=== PATIENT | male | born 1940 | race Caucasian/White ===

== ENCOUNTER 2017-03-11 06:23 | Day surgery (SDC) | payer OTHER ==
[2017-03-04 13:28] LABS: HEMOGLOBIN 10.7 g/dL (13.6-17.8)
[2017-03-04 13:29] LABS: HEMATOCRIT 33.6 % (40.0-51.0)
[2017-03-04 13:32] LABS: ASCORBIC ACID (UR NOT ORDER) NEG (NEG); BILIRUBIN, URINE NEGATIVE (NEG); KETONE, URINE NEGATIVE (NEG); LEUKOCYTE ESTERASE(NOT OR NEG (NEG); WBC (NOT ORDERED) (RFLEX) < 1 (0-5)
[2017-03-04 13:46] LABS: BUN (BLOOD UREA NITROGEN) 8 MG/DL (6-23); CALCIUM, SERUM 8.7 MG/DL (8.5-10.4); CHLORIDE, SERUM 98 MMOL/L (96-112); CO2 (CARBON DIOXIDE) 26 MMOL/L (24-34); CREATININE 0.86 MG/DL (0.70-1.30); GFR AFRICAN AMERICAN 96 ML/MIN (>=60); GFR NON AFRICAN AMERICAN 83 ML/MIN (>=60); GLUCOSE, SERUM 83 MG/DL (60-99); POTASSIUM, SERUM 4.2 MMOL/L (3.5-5.3); SODIUM, SERUM 130 MMOL/L (135-148)
--- NOTE | ~2017-03-11 | OP ---
Record Of Operation [facility] [address] [place]. [address] NAME: PONCHO MCDANIEL : 36 STATUS : REG [facility]#: [id number] AGE: 76 ADM/REG DATE : 03/11/17 MR#: [id number] REPORT SERV DATE: 03/11/17 DICTATED BY: PONCHO SONI JR. DATE: 03/11/17 REPORT STATUS : Draft TRANSCRIBED BY: MODL DATE: 03/11/17 DATE OF PROCEDURE: 03/11/2017 SURGEON: Poncho Soni M.D. PREOPERATIVE DIAGNOSIS: Urinary retention. POSTOPERATIVE DIAGNOSIS: Urinary retention. PROCEDURE PERFORMED: Removal of InterStim device and lead along with placement of new InterStim lead stage I. COMPLICATIONS: None. CONSULTATIONS: None. ANESTHESIA: General with an endotracheal tube. SPECIMENS: InterStim device plus lead. DRAINS: None. ESTIMATED BLOOD LOSS: None. INDICATION: Mr. Mcdaniel is a 76-year-old gentleman, who has an InterStim device in place to help manage his urinary retention. It has become ineffective over the past several months and he is no longer able to feel any stimulation from the device and he is no longer able to empty his bladder. He did have emptying ability at one point during the original placement of his device. He comes today for placement of a new lead and new location. PROCEDURE IN DETAIL: After the patient was identified and proper informed consent was obtained, he was taken to the operating room. General anesthesia was performed without complication using an endotracheal tube. He was then prepped and draped in a normal sterile fashion in the prone position. I identified the old InterStim device in the right upper buttock. I made an incision overlying his previous scar and removed the InterStim battery from the pseudo pocket leaving it attached to the actual lead itself. I then made a second incision overlying the insertion location for the previous lead on the right S3 foramen. The lead was identified and brought up from the skin. I then dissected down along the lead all the way to the base of the actual lead itself and then removed the lead from the S3 foramen and from the patient. I then irrigated these 2 sites and closed using a 3-0 Vicryl suture in the subcutaneous tissue and a 4-0 Monocryl on the skin with Telfa Tegaderm for dressing. I then placed two needles into the left S3 foramen. The more lateral lead had reasonable stimulation; however, the more medial lead had excellent flexion as well as perineal Reva. On x-ray,the angle appeared excellent and then the more medial location was felt to be the better of the two. I then removed the lateral needle and been placed the guidewire down the more medial needle and removed the needle itself, placing the sheath over Record Of Operation [place] [id number] [place]. [address] NAME: PONCHO MCDANIEL : 36 STATUS : REG [facility] PAT#: [id number] AGE: 76 ADM/REG DATE : 03/11/17 MR#: [id number] REPORT SERV DATE: 03/11/17 DICTATED BY: PONCHO SONI JR. DATE: 03/11/17 REPORT STATUS : Draft TRANSCRIBED BY: DENIZ DATE: 03/11/17 the guidewire and the lead down in through the sheath under fluoroscopic guidance. The lead appeared to be in excellent position with the #3-lead right at the anterior edge of the sacrum. I then tested these leads and had excellent toe flexion and perineal Reva at 2 to 2.8 on the power level on all 4 leads. I then tunneled the lead over to a pocket made on the left upper buttock, connected the lead to the extension device and tunneled the extension device medially and superiorly and brought it out through the skin. I irrigated these 2 incisions and closed them again using a 3-0 Vicryl and a 4-0 Monocryl with Telfa Tegaderm for dressing. The patient was awakened in the operating room and transferred to the postanesthesia care in stable condition. I will touch base with him next week and will decide on whether or not to proceed with stage II. CIRO/DENIZ Poncho Soni Jr., M.D. / [id number] CC: Matt Dodd Jr., D.O.
[~2017-03-11 06:23] MED LIST: BACDS PO; CAT1 PO; CHLORTHALIDONE; COREG6 PO; ENALAPRIL PO; EXCEDRIN EXTRA1 EACH PO; FINASTERIDE; FLOMAX; FOSINOPRIL PO; HYDRALAZINE PO; IRON PO; K-TABS10 MEQ PO; L20 PO; LIPITOR10 PO; LISINOPRIL; MULTIPLE VIT PO; NEUR100 PO; OMEPRAZOLE PO; PRILOSEC40 MG PO; PROAIR HFA INH; REM15 PO; REQUIP3 PO; VASOTEC20 MG PO; VIST25 PO; VITAMIN D PO; VITAMINS/SUPPLEMENTS; ZOL100 PO
[2017-03-15] MEDS ORDERED: NORCO1 TA2 PO (15:36)
[2017-03-15] MEDS ORDERED: VITA D2 PO (15:39)
[2017-03-15] MEDS ORDERED: ALBUTEROL INH (16:02)
== END 2017-03-11 14:42 | disposition home or self-care (01) ==
LOC: SDC 06:23
PROVIDERS: Urology
PROC: 01PY0MZ Removal of Neurostimulator Lead from Peripheral Nerve, Open Approach (ICD-10-PCS; principal; 2017-03-11 07:45)
PROC: 01HY0MZ Insertion of Neurostimulator Lead into Peripheral Nerve, Open Approach (ICD-10-PCS; 2017-03-11 07:45)
DX: Z46.2 Encounter for fitting and adjustment of other devices related to nervous system and special senses (principal); J44.9 Chronic obstructive pulmonary disease, unspecified; I10 Essential (primary) hypertension; F17.210 Nicotine dependence, cigarettes, uncomplicated; R33.9 Retention of urine, unspecified; F41.9 Anxiety disorder, unspecified; G47.33 Obstructive sleep apnea (adult) (pediatric); Z98.41 Cataract extraction status, right eye; Z98.1 Arthrodesis status; Z98.42 Cataract extraction status, left eye; Z98.890 Other specified postprocedural states; Z79.899 Other long term (current) drug therapy
CPT/HCPCS: 80048; 81001; 85014; 85018; 88300; 93005; 94640; C1778; J0694; J2250; J2270; J2370; J2405; J3010

== ENCOUNTER 2017-03-21 12:03 | Day surgery (SDC) | payer OTHER ==
--- NOTE | ~2017-03-21 | OP ---
Record Of Operation [facility] [address] [place]. [address] NAME: PONCHO MCDANIEL : 36 STATUS : [facility]#: [id number] AGE: 76 ADM/REG DATE : 03/21/17 MR#: [id number] REPORT SERV DATE: 03/21/17 DICTATED BY: ASH FANGPONCHO LYNDSAY DATE: 03/21/17 REPORT STATUS : Draft TRANSCRIBED BY: MODL DATE: 03/21/17 DATE OF PROCEDURE: 03/21/2017 SURGEON: Poncho Soni M.D. PREOPERATIVE DIAGNOSIS: Urinary retention. POSTOPERATIVE DIAGNOSIS: Urinary retention. PROCEDURE PERFORMED: Stage II InterStim placement. COMPLICATIONS: None. CONSULTATIONS: None. ANESTHESIA: General with an endotracheal tube. SPECIMENS: None. DRAINS: None. ESTIMATED BLOOD LOSS: None. INDICATION: Mr. Mcdaniel is a 76-year-old gentleman, who is back today after stage I InterStim placed approximately 10 days ago. He is in urinary retention and does require Shanks catheterization. However, he has gotten much better stimulation from this new lead placement. He feels the flutter in the perineum and scrotum as expected and he is yet to see positive results from a voiding standpoint. However, he does report that he feels as there is less pain and less spasm of the bladder with the device in place. PROCEDURE IN DETAIL: After the patient was identified and proper informed consent was obtained, he was taken to the operating room. General anesthesia was performed without complication using an endotracheal tube. He was then prepped and draped in normal sterile fashion in the prone position. I started by incising the previous incision where the pocket was made with the lead was connected to the temporary extension. I brought out the connection and the extension from the permanent lead. I cut the lead and placed it in the trash. I then connected the lead to a InterStim battery. Once appropriately connected, I placed the InterStim battery within the previously formed pocket and interrogation of the device was performed and found to be in good working order. At that point, I irrigated the InterStim battery pocket and closed the pocket using two layers, one layer of 3-0 Vicryl in the Cass's fascia and a 4-0 Monocryl on the skin. Telfa Tegaderm was used for dressing. The patient was awakened in the operating room transferred to the postanesthesia care in stable condition. I will see him back in the office in two weeks. Record Of Operation [place] [id number] [facility] [place]. [address] NAME: PONCHO MCDANIEL : 36 STATUS : [facility] PAT#: [id number] AGE: 76 ADM/REG DATE : 03/21/17 MR#: [id number] REPORT SERV DATE: 03/21/17 DICTATED BY: PONCHO SONI JR. DATE: 03/21/17 REPORT STATUS : Draft TRANSCRIBED BY: DENIZ DATE: 03/21/17 CIRO/DENIZ Poncho Soni Jr., M.D. / [id number] CC: Poncho Soni Jr., M.D.
[~2017-03-21 12:03] MED LIST changes: +ALBUTEROL INH; +NORCO1 TA2 PO; +VITA D2 PO
== END 2017-03-21 17:34 | disposition home or self-care (01) ==
LOC: SDC 12:03
PROVIDERS: Urology
PROC: 0JH70BZ Insertion of Single Array Stimulator Generator into Back Subcutaneous Tissue and Fascia, Open Approach (ICD-10-PCS; principal; 2017-03-21 12:45)
DX: R33.9 Retention of urine, unspecified (principal); I10 Essential (primary) hypertension; I71.4 Abdominal aortic aneurysm, without rupture; E78.5 Hyperlipidemia, unspecified; E78.00 Pure hypercholesterolemia, unspecified; Q60.0 Renal agenesis, unilateral; J44.9 Chronic obstructive pulmonary disease, unspecified; G97.61 Postprocedural hematoma of a nervous system organ or structure following a nervous system procedure; G83.4 Cauda equina syndrome; G82.20 Paraplegia, unspecified; K21.9 Gastro-esophageal reflux disease without esophagitis; D64.9 Anemia, unspecified; F90.9 Attention-deficit hyperactivity disorder, unspecified type; F41.9 Anxiety disorder, unspecified; F31.9 Bipolar disorder, unspecified; F17.210 Nicotine dependence, cigarettes, uncomplicated; R29.6 Repeated falls; Z91.81 History of falling; Z79.82 Long term (current) use of aspirin; Z79.899 Other long term (current) drug therapy; Z98.41 Cataract extraction status, right eye; Z98.42 Cataract extraction status, left eye; Z96.1 Presence of intraocular lens; Z98.1 Arthrodesis status; Z99.3 Dependence on wheelchair; Z98.890 Other specified postprocedural states; Z87.440 Personal history of urinary (tract) infections
CPT/HCPCS: 76000; C1767; C1787; J0694; J2370; J2405; J3010